=== PATIENT | female | born 1995 | race African-American/Black ===

== ENCOUNTER → 2016-07-02 | Outpatient (CLI) | payer MEDICAID ==
[~2016-07-02] MED LIST: CEPH500C3 PO; METR500I3 PO; PRENCAP6 PO; ZOFR4TAB PO
== END ==
LOC: HPND 08:35
PROVIDERS: ATTEND Obstetrics & Gynecology
DX: O35.8XX0 Maternal care for other (suspected) fetal abnormality and damage, not applicable or unspecified (principal)
CPT/HCPCS: 76811

== ENCOUNTER 2016-07-27 10:49 | Emergency (ER) | payer MEDICAID ==
[~2016-07-27 10:49] MED LIST changes: -ZOFR4TAB PO
[2016-07-27 11:01] VITALS: TEMP 97.9
[2016-07-27 11:02] VITALS: RESP 18
[2016-07-27 11:05] VITALS: BP 114/72; PULSE 97
--- NOTE | 2016-07-27 11:07 | PD ---
HPI Chief Complaint nausea and diarrhea Date Seen: Jul 27, 2016 Travel History International Travel<30 Days: No Contact w/Intl Traveler<30Days: No History of Present Illness HPI 21 yo @ 28w4d with VANGIE 10-15-2016. care with Dr. Rg. 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 Normal genetic screening. Patient presents with c/o nausea, vomiting, and diarrhea. She presented to [facility] 2 days ago with the same symptoms and was discharged. She reports not being able to keep anything down for >24 hours now. Continued watery stools and watery emesis. Epigastric discomfort and abdominal cramping noted. She denies UC, LOF, VB. +FM. History Past Medical History Narrative Medical HSV Obstetric History Obstetric History G1 Past Surgical History Surgical History: No Previous Surgery Social History Alcohol Use: No Tobacco Use: No Substance Abuse: Yes (THC) Allergies-Medications (Allergen,Severity, Reaction): Coded Allergies: No Known Allergies (Verified , 08/12/14) Home Meds Active Scripts Cephalexin (Keflex)500 Mg [id number] Mg PO Q8 #10 CAP Prov:Arelis Puga MD 08/12/14 Metronidazole In Nacl (Metronidazole In Nacl 0.7)500 Mg [id number] Mg PO BID 5 Days Prov:Jameson Christine MD 02/07/14 Reported Medications Mv & Min W/Fe Fumarat ( 1) Cap1 Cap PO DAILY 08/12/14 Review of Systems General / Constitutional: No: Fever, Chills Eyes: No: Blurred Vision, Visual changes HENT: No: Headaches, Lightheadedness Cardiovascular: No: Chest Pain or Discomfort, Palpitations Respiratory: No: Cough, Short of Breath Gastrointestinal: Nausea, Vomiting, Diarrhea, Abdominal Pain, Loss of Appetite Genitourinary: Decreased Urinary Output, No: Urgency, Frequency, Dysuria, Vaginal Bleeding Musculoskeletal: No: Limited ROM, Weakness Skin: No Rash, No Itching, No Lesions Neurologic: No: Weakness, Focal Abnormalities Hematologic/Lymphatic: No Easy Bruising, No Lymph Node Enlargement Physical Exam Vital Signs Date Time Temp Pulse Resp B/P Pulse Ox O2 Delivery O2 Flow Rate FiO2 07/27/16 11:05 97 114/72 07/27/16 11:02 18 07/27/16 11:01 97.9 Narrative GENERAL: Well-nourished, well-developed patient. SKIN: Warm and dry. HEAD: Normocephalic and atraumatic. EYES: No scleral icterus. No injection or drainage. ENT: No nasal drainage noted. Mucous membranes pink. Airway patent. NECK: Supple, trachea midline. No JVD. CARDIOVASCULAR: Regular rate VSS, afebrile RESPIRATORY: No accessory muscle use. ABDOMEN/GI: Abdomen soft, non-tender, no rebound, no guarding. No current epigastric tenderness. Gravid, NT TOCO: NO UC FHT's: Reassuring for gestational age Baseline: 145 Reactive: [-] Variability: mod Decels: [-] EXTREMITIES: No cyanosis or edema. BACK: Nontender without obvious deformity. No CVA tenderness. NEUROLOGICAL: Awake and alert. Motor and sensory grossly within normal limits. Normal speech. Data Data Vital Signs Reviewed: Yes Orders Vital Signs (Adult) .ON ADMISSION (07/27/16 10:56) ^ Labor Status (07/27/16 10:56) Urinalysis - C+S If Indicated (07/27/16 10:56) ^ Hydration (07/27/16 10:56) Labs Laboratory Tests Test 07/27/16 07/27/16 11:02 11:30 Urine Color YELLOW (YELLW/STRAW) Urine Turbidity CLEAR (CLEAR) Urine pH 6.5 (5.0-8.5) Urine Specific [place] 1.025 (1.002-1.035) Urine Protein 30 mg/dL (NEG-TRACE) Urine Glucose (UA) NEG mg/dL (NEG) Urine Ketones 150 mg/dL (NEG) Urine Occult Blood NEG (NEG) Urine Nitrite NEG (NEG) Urine Bilirubin NEG (NEG) Urine Urobilinogen LESS THAN 2.0 MG/DL (LESS THAN 2.0) Urine Leukocyte Esterase SMALL (NEG) Urine RBC 3 /hpf (0-3) Urine WBC 5 /hpf (0-5) Urine Squamous Epithelial 3 /hpf (0-5) Cells Urine Mucus MANY /lpf (OCC) Microscopic Urinalysis Comment CULT NOT INDICATED White Blood Count 9.7 TH/MM3 (4.0-11.0) Red Blood Count 3.35 MIL/MM3 (4.00-5.30) Hemoglobin 9.9 GM/DL (11.6-15.3) Hematocrit 29.4 % (35.0-46.0) Mean Corpuscular Volume 87.6 FL (80.0-100.0) Mean Corpuscular Hemoglobin 29.5 PG (27.0-34.0) Mean Corpuscular Hemoglobin 33.7 % Concent (32.0-36.0) Red Cell Distribution Width 13.4 % (11.6-17.2) Platelet Count 300 TH/MM3 (150-450) Mean Platelet Volume 6.9 FL (7.0-11.0) Sodium Level 140 MEQ/L (136-145) Potassium Level 3.6 MEQ/L (3.5-5.1) Chloride Level 105 MEQ/L (98-107) Carbon Dioxide Level 25.9 MEQ/L (21.0-32.0) Anion Gap 9 MEQ/L (5-15) Blood Urea Nitrogen 4 MG/DL (7-18) Creatinine 0.49 MG/DL (0.50-1.00) Estimat Glomerular Filtration 191 ML/MIN Rate (>89) Random Glucose 77 MG/DL (74-106) Calcium Level 8.9 MG/DL (8.5-10.1) Total Bilirubin 0.2 MG/DL (0.2-1.0) Aspartate Amino Transf 9 U/L (15-37) (AST/SGOT) Alanine Aminotransferase 11 U/L (10-53) (ALT/SGPT) Alkaline Phosphatase 100 U/L (45-117) Total Protein 7.3 GM/DL (6.4-8.2) Albumin 2.9 GM/DL (3.4-5.0) MDM Narrative Course / MDM 28w4d Gastroenteritis with N/V/D x 3 days Severe dehydration IV and oral hydration, patient feels significant improvement Anti-emetics given, tolerating oral fluids CBC wnl, mild anemia, no evidence of infection CMP wnl mild hypoalbuminemia Normal status, no evidence of labr Plan D/c home Rx Zofran Continue oral fluids, bland diet Rest F/u with her OB on friday. Dehydration precautions Diagnosis Diagnosis: Primary Impression: Dehydration, severe Additional Impressions: Gastroenteritis , GI problems Qualified Code: O26.893 - , GI problems, third trimester Disposition: 01 DISCHARGE HOME Condition: Good Sue Diaz MD Jul 27, 2016 11:07
[2016-07-27 11:21] LABS: BLOOD, URINE NEG (NEG); COMMENT (UR) CULT NOT INDICATED; CULTURE IF INDICATED CULT NOT INDICATED; GLUCOSE,URINE NEG (NEG); KETONE, URINE 150 mg/dL (NEG); MUCUS URINE MANY /lpf (OCC); NITRITE,URINE NEG (NEG); PH, URINE 6.5 (5.0-8.5); SQUAMOUS EPITHELIAL CELL URINE 3 /hpf (0-5); URINE COLOR YELLOW (YELLW/STRAW)
[2016-07-27 12:07] LABS: HEMATOCRIT 29.4 % (35.0-46.0); MEAN CELL VOLUME 87.6 FL (80.0-100.0); MEAN CORPUSCULAR HEMOGLOBIN 29.5 PG (27.0-34.0); MEAN CORPUSCULAR HGB CONC 33.7 % (32.0-36.0); PLATELET COUNT 300 TH/MM3 (150-450); RED BLOOD COUNT 3.35 MIL/MM3 (4.00-5.30); RED CELL DISTRIBUTION WIDTH 13.4 % (11.6-17.2); REVIEW FLAG FINAL; WHITE BLOOD COUNT 9.7 TH/MM3 (4.0-11.0)
[2016-07-27 12:24] LABS: ALT (GPT) 11 U/L (10-53); ANION GAP 9 MEQ/L (5-15); AST (GOT) 9 U/L (15-37); BICARBONATE 25.9 MEQ/L (21.0-32.0); BLOOD UREA NITROGEN 4 MG/DL (7-18); CHLORIDE 105 MEQ/L (98-107); GLOMERULAR FILTRATION RATE 191 ML/MIN (>89); POTASSIUM 3.6 MEQ/L (3.5-5.1); SODIUM (NA) 140 MEQ/L (136-145)
[2016-07-27 12:26] LABS: ALKALINE PHOSPHATASE 100 U/L (45-117); TOTAL BILIRUBIN ADULT 0.2 MG/DL (0.2-1.0)
[2016-07-27] MEDS ORDERED: ZOFR4TAB PO (12:45)
[2016-07-27] MEDS ORDERED: LACTATED RINGER'S 1000 ML INJ 1,000 ML IV ONE (13:00)
[2016-07-27] MEDS ORDERED: ONDANSETRON HCL 4 MG/2 ML VIAL IV ONE (13:00)
== END 2016-07-27 13:00 | disposition home or self-care (01) ==
LOC: HOBED 10:49
DX: O26.93 Pregnancy related conditions, unspecified, third trimester (principal); E86.0 Dehydration; K52.9 Noninfective gastroenteritis and colitis, unspecified; Z3A.28 28 weeks gestation of pregnancy
CPT/HCPCS: 80053; 81001; 85027; 96361; 96374; 99284; J2405; J7120

== ENCOUNTER → 2016-08-12 | Outpatient (CLI) | payer MEDICAID ==
[~2016-08-12] MED LIST changes: +ZOFR4TAB PO
== END ==
LOC: HPND 08:30
PROVIDERS: ATTEND Obstetrics & Gynecology
DX: O35.1XX0 Maternal care for (suspected) chromosomal abnormality in fetus, not applicable or unspecified (principal); Z3A.30 30 weeks gestation of pregnancy
CPT/HCPCS: 76816

== ENCOUNTER 2017-01-31 09:02 | Emergency (ER) | payer MEDICAID ==
[~2017-01-31] VITALS: Ht 165.1 cm; Wt 65.0 kg
[2017-01-31 09:08] VITALS: BP 110/68; PULSE 88; RESP 16; TEMP 98.6; O2SAT 100
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
[2017-01-31] MEDS ORDERED: IBUPROFEN 800 MG TAB PO ONE (09:30)
[2017-01-31] MEDS ORDERED: TETANUS/DIPHTHERIA TOXOID ADULT 0.5 ML VIAL IM ONE (09:30)
[2017-01-31] MEDS ORDERED: AUGM875T3 PO (09:41)
[2017-01-31] MEDS ORDERED: IBUP1TAB7 PO (09:41)
[2017-01-31] MEDS ORDERED: AMOXICILLIN/CLAVULANATE K 875 MG TAB PO ONE (09:45)
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
[2017-01-31 10:30] VITALS: RESP 18
== END 2017-01-31 10:47 | disposition home or self-care (01) ==
LOC: NEPD 09:02
DX: S61.252A Open bite of right middle finger without damage to nail, initial encounter (principal); Y04.1XXA Assault by human bite, initial encounter; Z23 Encounter for immunization
CPT/HCPCS: 73140; 87070; 90471; 90714